=== PATIENT | female | born 1955 | race Caucasian/White ===

== ENCOUNTER 2019-06-04 07:25 | Emergency (ER) | payer OTHER ==
[~2019-06-04] VITALS: Ht 160 cm; Wt 62.6 kg
[2019-06-04] MEDS ORDERED: LEVOXYL75 MCG PO (07:45)
[2019-06-04] MEDS ORDERED: ZOCOR40 MG PO (07:45)
[2019-06-04] MEDS ORDERED: METFORMIN HCL1000 MG PO (07:46)
[2019-06-04] MEDS ORDERED: GLIPIZIDE ER10 MG PO (07:46)
[2019-06-04] MEDS ORDERED: COZAAR50 MG PO (07:47)
[2019-06-04] MEDS ORDERED: OSTERA TABLET1 EACH (07:47)
== END 2019-06-04 10:00 | disposition home or self-care (01) ==
LOC: ER 07:25
DX: S61.210A Laceration without foreign body of right index finger without damage to nail, initial encounter (principal); W18.09XA Striking against other object with subsequent fall, initial encounter; Y93.84 Activity, sleeping; Y92.230 Patient room in hospital as the place of occurrence of the external cause; Y99.8 Other external cause status